=== PATIENT | male | born 1985 | race Caucasian/White ===

== ENCOUNTER 2017-08-30 08:19 | Inpatient (IN) | payer SELFPAY ==
[~2017-08-30] VITALS: Ht 170.2 cm; Wt 68.0 kg
[2017-08-30] MEDS ORDERED: SODIUM CHLORIDE 0.9% 1,000 ML IV ONE (08:51)
[2017-08-30] MEDS ORDERED: ASPIRIN 81MG TABLET PO STA (08:51)
[2017-08-30] MEDS ORDERED: LORAZEPAM 2MG/ML CPJ IV ONE (09:00)
[2017-08-30 09:13] LABS: BASOPHILS % 0.9 % (0.0-2.0); EOSINOPHILS % 0.7 % (0.0-5.0); HEMATOCRIT. 49.6 % (42.0-52.0); LYMPHOCYTES % 22.9 % (20.0-50.0); MEAN CORPUSCULAR HEMOGLOBIN 30.8 pg (28.0-32.0); MEAN CORPUSCULAR VOLUME 89.9 fL (80.0-94.0); MEAN PLATELET VOLUME 7.5 fl (7.4-10.4); NEUTROPHILS % 68.5 % (40.0-76.0); PLATELET 348 x1000/uL (130-400); RED BLOOD CELL COUNT 5.52 mill/uL (4.7-6.1)
[2017-08-30 09:18] LABS: CHLORIDE 103 mEq/L (98-107); INR 1.1; PARTIAL THROMBOPLASTIN TIME 27.8 sec (23.4-31.0)
[2017-08-30 09:26] LABS: CREATINE KINASE 359 IU/L (39-308)
[2017-08-30 14:00] VITALS: BP 117/73
[2017-08-30] MEDS ORDERED: ONDANSETRON HCL 4MG/2ML VIAL IV PRN (15:30)
[2017-08-30] MEDS ORDERED: ACETAMINOPHEN 325MG TABLET PO PRN (15:30)
[2017-08-30] MEDS ORDERED: MAGNESIUM/ALUMINUM HYDROXIDE/SIMETHICONE 30ML UDC PO PRN (15:30)
[2017-08-30] MEDS ORDERED: CLONIDINE 0.1MG TABLET PO PRN (15:30)
[2017-08-30] MEDS ORDERED: HYDROCODONE/ACETAMINOPHEN 5/325MG TABLET PO PRN (15:30)
[2017-08-30] MEDS ORDERED: DOCUSATE SODIUM 100MG CAPSULE PO PRN (15:30)
[2017-08-30] MEDS: AMLODIPINE 10MG TABLET PO SCH (16:34)
[2017-08-30] MEDS: ASPIRIN 81MG EC TABLET PO SCH (16:35)
[2017-08-30 20:00] VITALS: BP 123/65
[2017-08-30 23:35] LABS: CREATINE KINASE 282 IU/L (39-308)
[2017-08-30 23:36] LABS: CREATINE KINASE MB FRACTION 4.9 ng/mL (0.5-3.6)
[2017-08-31] VITALS: BP 129/61
[2017-08-31 04:00] VITALS: BP 111/66
[2017-08-31 07:52] LABS: BASOPHILS % 0.7 % (0.0-2.0); EOSINOPHILS % 1.9 % (0.0-5.0); HEMATOCRIT. 47.3 % (42.0-52.0); LYMPHOCYTES % 32.4 % (20.0-50.0); MEAN CORPUSCULAR HEMOGLOBIN 30.5 pg (28.0-32.0); MEAN PLATELET VOLUME 7.8 fl (7.4-10.4); MONOCYTES % 5.9 % (2.0-8.0); NEUTROPHILS % 59.1 % (40.0-76.0); PLATELET 311 x1000/uL (130-400); RED BLOOD CELL COUNT 5.25 mill/uL (4.7-6.1); RED CELL DISTRIBUTION WIDTH 12.7 % (11.6-14.6)
[2017-08-31 08:00] VITALS: BP 102/72
[2017-08-31 08:20] LABS: CHLORIDE 106 mEq/L (98-107)
[2017-08-31 08:47] LABS: CREATINE KINASE 240 IU/L (39-308); LDL CHOLESTEROL 143 mg/dL (5-100)
[2017-08-31 08:48] LABS: HDL CHOLESTEROL 48 mg/dL (40-59)
[2017-08-31 08:52] LABS: CREATINE KINASE MB FRACTION 4.2 ng/mL (0.5-3.6)
[2017-08-31] MEDS: AMLODIPINE 10MG TABLET PO SCH (09:00)
[2017-08-31] MEDS: ASPIRIN 81MG EC TABLET PO SCH (10:01)
[2017-08-31 15:27] VITALS: BP 111/70
== END 2017-08-31 16:00 | disposition home or self-care (01) | DRG 203 ==
LOC: ER 09:18 → 6WST 11:36 → EDBEDREQ 11:39 → EDBEDREQTM 11:39 → ENRESERV 12:30
PROVIDERS: ADMIT Hospitalist; ATTEND Hospitalist
DX: R07.9 Chest pain, unspecified (principal); F14.10 Cocaine abuse, uncomplicated; E78.00 Pure hypercholesterolemia, unspecified; F15.10 Other stimulant abuse, uncomplicated
CPT/HCPCS: 36415; 71045; 80048; 80053; 80061; 82550; 82553; 84484; 85025; 85610; 85730; 93005; 96361; 96374; 99285; J2060; J7030